=== PATIENT | male | born 1955 | race Asian ===

== ENCOUNTER → 2016-11-15 | Outpatient (CLI) | payer OTHER ==
[~2016-11-15] MED LIST: AMLODIPINE BESY10 MG PO; ANUSOL-HC21 GM PR; BYSTOLIC10 MG PO; CLONIDINE HCL0.1 MG PO; ERGOCALCIF50000 UNIT PO; LOSARTAN-HCTZ1 EACH PO; MIRALAX255 GM PO; NEXIUM20 MG PO
== END | disposition home or self-care (01) ==
LOC: NUC 11-01 10:30
DX: R10.13 Epigastric pain (principal); R19.4 Change in bowel habit; K21.9 Gastro-esophageal reflux disease without esophagitis; K92.2 Gastrointestinal hemorrhage, unspecified; K92.1 Melena
CPT/HCPCS: 78227; A9537; J2805